=== PATIENT | male | born 2000 | race Caucasian/White ===

== ENCOUNTER 2023-06-22 00:22 | Emergency (ER) | payer SELFPAY ==
[~2023-06-22] VITALS: Ht 177.8 cm; Wt 127.0 kg
[2023-06-22 00:46] VITALS: BP 155/105; PULSE 85; RESP 18; TEMP 98.5; O2SAT 93
[2023-06-22] MEDS ORDERED: SULF1TAB24 PO (01:06)
[2023-06-22 01:21] VITALS: BP 122/89; PULSE 82; RESP 18; TEMP 98.5; O2SAT 96
== END 2023-06-22 01:21 | disposition home or self-care (01) ==
LOC: ER 00:22
DX: L03.116 Cellulitis of left lower limb (principal); F12.90 Cannabis use, unspecified, uncomplicated
CPT/HCPCS: 10160; 99283; 99284